=== PATIENT | male | born 1975 | race Caucasian/White ===

== ENCOUNTER 2021-12-31 11:42 | Emergency (ER) | payer SELFPAY ==
[2021-12-31 15:24] LABS: BASOPHIL 0.7 % (0-2); EOSINOPHIL 4.4 % (0-5); HCT 52.1 % (42.0-52.0); HGB 17.9 g/dl (13.2-18.0); LYMPHOCYTE 32.2 % (15-48); MCH 32.4 pg (25.0-31.0); MCHC 34.4 g/dL (32.0-36.0); MCV 94.4 fL (78.0-100.0); MPV 9.7 fL (6.0-9.5); NEUTROPHIL 51.8 % (41-80); NRBC 0; PLT 192 K/uL (150-400); RBC 5.52 M/uL (4.70-6.00); RDW 12.8 % (11.5-14.0); WBC 12.2 K/uL (4.0-10.5)
[2021-12-31 15:34] LABS: ALBUMIN 3.3 g/dL (3.4-5.0); BILIRUBIN - TOTAL 0.5 mg/dL (0.2-1.0); C-REACTIVE PROTEIN 0.6 mg/dL (<=0.90); CREATININE 0.77 mg/dL (0.67-1.17); GLOBULIN (CALCULATION) 4.4 g/dL; POTASSIUM 3.9 mmol/L (3.5-5.1); TOTAL PROTEIN 7.7 g/dL (6.4-8.2)
[2021-12-31] MEDS ORDERED: ULTRAM50 MG PO (17:47)
[2021-12-31] MEDS ORDERED: MELOXICAM15 MG PO (17:47)
== END 2021-12-31 18:20 | disposition home or self-care (01) ==
LOC: FER 11:42
PROVIDERS: Emergency Medicine
DX: M17.0 Bilateral primary osteoarthritis of knee (principal); I10 Essential (primary) hypertension; F17.210 Nicotine dependence, cigarettes, uncomplicated; Z88.0 Allergy status to penicillin; Z79.899 Other long term (current) drug therapy; Z28.310 Unvaccinated for COVID-19
CPT/HCPCS: 36415; 73560; 80053; 83880; 85025; 85379; 86140; 93970